=== PATIENT | female | born 1985 | race American Indian/Alaskan Native ===

== ENCOUNTER 2016-10-07 21:59 | Outpatient (CLI) | payer BC ==
[2016-10-07 22:29] VITALS: BP 108/58
[2016-10-07] MEDS ORDERED: LACTATED RINGERS 500 ML IV ONE (23:08)
== END 2016-10-07 23:10 | disposition home or self-care (01) ==
LOC: TRG 21:59 → LD 22:20 → TRG 23:10
PROVIDERS: ATTEND Obstetrics & Gynecology
DX: O47.03 False labor before 37 completed weeks of gestation, third trimester (principal); Z3A.36 36 weeks gestation of pregnancy
CPT/HCPCS: 59025

== ENCOUNTER 2016-10-23 15:23 | Outpatient (CLI) | payer BC ==
[2016-10-23 17:05] VITALS: BP 103/62
--- NOTE | 2016-10-24 07:39 | Ultrasound Report ---
ULTRASOUND BIOPHYSICAL PROFILE: History: Nonreactive stress test, well being Technique: Transabdominal ultrasound with Doppler interrogation. 2 - breathing movements 2 - movements 2 - posture and tone 2 - Qualitative amniotic fluid volume 8 - TOTAL SCORE OF POSSIBLE 8 Heart Rate (bpm) 157
== END 2016-10-23 18:05 | disposition home or self-care (01) ==
LOC: TRG 15:23
PROVIDERS: ATTEND Obstetrics & Gynecology
DX: O47.1 False labor at or after 37 completed weeks of gestation (principal); Z3A.38 38 weeks gestation of pregnancy
CPT/HCPCS: 59025; 76819

== ENCOUNTER 2016-11-06 04:21 | Inpatient (IN) | payer BC ==
[2016-11-06] MEDS ORDERED: SUBLIMAZE IV PRN (06:52)
[2016-11-06] MEDS ORDERED: STADOL IV PRN (06:52)
[2016-11-06] MEDS ORDERED: XYLOCAINE 2% INFILTRATI ONE (06:52)
[2016-11-06] MEDS ORDERED: MINERAL OIL PO PRN (06:52)
[2016-11-06] MEDS ORDERED: BRETHINE IVP PRN (06:52)
[2016-11-06] MEDS ORDERED: ZOFRAN IV PRN ×2 (06:52→09:00)
[2016-11-06] MEDS ORDERED: PHENERGAN PO PRN ×2 (06:52→09:00)
[2016-11-06] MEDS ORDERED: BRETHINE SUB-Q PRN (06:52)
[2016-11-06] MEDS ORDERED: ePHEDrine SULFATE IV PRN (06:52)
[2016-11-06] MEDS ORDERED: POLYCILLIN/NS 2 GM/100 ML 2 GM/100 ML BAG IV ONE ×2 (06:52→06:54)
[2016-11-06] MEDS ORDERED: PITOCin/NS 30 UNIT/500ML 30 UNITS/500 ML BAG IV SCH ×2 (07:00)
[2016-11-06] MEDS ORDERED: PITOCin/NS 20 UNIT/1000ML DRIP 20 UNITS/1,000 ML BAG IV SCH ×2 (07:00→09:00)
[2016-11-06] MEDS ORDERED: LACTATED RINGERS 1,000 ML IV SCH (07:00)
[2016-11-06 07:28] LABS: Hematocrit 24.1 % (30.3-42.9); Hemoglobin 7.2 gm/dl (10.1-14.3); Mean Corpuscular HGB Conc 30 % (30-34); Platelet Count 353 K/mm3 (140-440); Red Blood Count 3.62 M/mm3 (3.65-5.03)
[2016-11-06 07:34] LABS: Mean Corpuscular Volume 67 fl (79-97)
[2016-11-06 07:35] LABS: Mean Corpuscular Hemoglobin 20 pg (28-32); Red Cell Distribution Width 23.8 % (13.2-15.2)
--- NOTE | 2016-11-06 07:47 | History and Physical Report ---
History of Present Illness Date of examination: 11/06/16 Date of admission: 11/06/16 06:54 Chief complaint: Labor History of present illness: Pt is a 31yo BF EDC 11/04/16; EGA 40 2/7 weeks presents to L&D complaining of RUC's q 2-3 mins. She received care at [facility] since 14 weeks and course is significant for a previous c section followed by x 3. Pt desires a TOLAC. records are available and GBS is Positive. Past History Past Medical History: no pertinent history, heart disease (cardiac murmur) Past Surgical History: section Social history: no significant social history, single - Obstetrical History Expected Date of Delivery: 11/04/16 Actual Gestation: 40 Week(s) 2 Day(s) : 5 Medications and Allergies Allergies Allergy/AdvReac Type Severity Reaction Status Date / Time No Known Allergies Allergy Verified 10/07/16 23:11 Active Meds: Active Medications Butorphanol Tartrate (Stadol) 2 mg IV Q2H PRN PRN Reason: Pain , Severe (7-10) Fentanyl (Sublimaze) 100 mcg IV Q2H PRN PRN Reason: Labor Pain Last Admin: 11/06/16 07:00 Dose: 100 mcg Ampicillin Sodium (Polycillin/Ns 1 Gm/50 Ml) 1 gm in 50 mls @ 100 mls/hr IV Q4H JAYDON PRN Reason: Protocol Ampicillin Sodium (Polycillin/Ns 2 Gm/100 Ml) 2 gm in 100 mls @ 100 mls/hr IV ONCE ONE PRN Reason: Protocol Stop: 11/06/16 07:51 Lactated Ringer's (Lactated Ringers) 1,000 mls @ 125 mls/hr IV DIRECT JAYDON Last Admin: 11/06/16 07:14 Dose: 125 mls/hr Oxytocin/Sodium Chloride (Pitocin/Ns 20 Unit/1000ml Drip) 20 units in 1,000 mls @ 125 mls/hr IV DIRECT JAYDON Oxytocin/Sodium Chloride (Pitocin/Ns 30 Unit/500ml) 30 units in 500 mls @ 1 mls /hr IV TITR JAYDON; 1 MILLIUNITS/MIN PRN Reason: Protocol Oxytocin/Sodium Chloride (Pitocin/Ns 30 Unit/500ml) 30 units in 500 mls @ 4 mls /hr IV TITR JAYDON PRN Reason: Protocol Mineral Oil (Mineral Oil) 30 ml PO QHS PRN PRN Reason: Constipation Ondansetron HCl (Zofran) 4 mg IV Q8H PRN PRN Reason: Nausea And Vomiting Promethazine HCl (Phenergan) 25 mg PO Q6H PRN PRN Reason: Nausea And Vomiting Review of Systems All systems: negative - Vital Signs Vital signs: Vital Signs Pulse BP Pulse Ox 79 113/64 99 11/06/16 04:29 11/06/16 04:29 11/06/16 04:29 Temp Pulse Resp BP Pulse Ox 85 20 115/69 99 11/06/16 07:35 11/06/16 07:00 11/06/16 07:35 11/06/16 05:23 - Physical Exam Breasts: Positive: deferred Cardiovascular: Regular rate Lungs: Positive: Clear to auscultation Abdomen: Positive: normal appearance Genitourinary (Female): Positive: normal external genitalia Vagina: Positive: normal moisture Uterus: Positive: enlarged Extremities: Positive: normal - Obstetrical FHR: category 1 Uterine Contraction Monitor Mode: External Cervical Dilatation: 5.5 Cervical Effacement Percentage: 70 station: -2 Uterine Contraction Pattern: Regular Uterine Tone Measurement Phase: Contraction Uterine Contraction Intensity: Moderate Results Result Diagrams: 11/06/16 07:00 Abnormal lab results 11/06/16 Range/Units 07:00 WBC 21.0 H (4.5-11.0) K/mm3 RBC 3.62 L (3.65-5.03) M/mm3 Hgb 7.2 L (10.1-14.3) gm/dl Hct 24.1 L (30.3-42.9) % MCV 67 L (79-97) fl MCH 20 L (28-32) pg RDW 23.8 H (13.2-15.2) % All other labs normal. Assessment and Plan - Patient Problems (1) 40 weeks gestation of Onset Date: 11/06/16 Current Visit: Yes Status: Acute Plan to address problem: A: IUP @ 40 2/7 weeks in labor Previous c section with x3 GBS Positive Anemia P: Admit to L&D for expectant vaginal delivery IV Ampicillin (2) Previous delivery affecting Onset Date: 11/06/16 Current Visit: Yes Status: Acute (3) Anemia affecting fifth Onset Date: 11/06/16 Current Visit: Yes Status: Acute
--- NOTE | 2016-11-06 08:12 | Procedure Note ---
OB Delivery Note - Delivery Date of Delivery: 11/06/16 Surgeon: DEMETRIS SAMS Estimated blood loss: 200cc - Vaginal Delivery presentation: vertex Delivery position: OA Intrapartum events: meconium, precipitous labor- <3hr Delivery induction: none Delivery augmentation: rupture of membranes Delivery monitor: external FHT, external uterine Route of delivery: Delivery placenta: spontaneous Delivery cord: 3 umbilical vessels Episiotomy: none Delivery laceration: none Anesthesia: intravenous Delivery comments: Infant delivered OA over intact perineum, and bulb suctioned for 2+ meconium with RT in attendance. - A at 1 minute: 8 at 5 minutes: 9 Gender: Female (2831gms)
[2016-11-06] MEDS ORDERED: TUCKS PAD TP PRN (09:00)
[2016-11-06] MEDS ORDERED: DERMOPLAST TP PRN (09:00)
[2016-11-06] MEDS ORDERED: PHENERGAN PR PRN (09:00)
[2016-11-06] MEDS ORDERED: SODIUM CHLORIDE FLUSH SYRINGE 10 ML IV PRN (09:00)
[2016-11-06] MEDS ORDERED: NORCO 5/325 PO PRN (09:00)
[2016-11-06] MEDS ORDERED: PERCOCET 5/325 PO PRN (09:00)
[2016-11-06] MEDS ORDERED: BENADRYL PO PRN (09:00)
[2016-11-06] MEDS ORDERED: LANSINOH TP PRN (09:00)
[2016-11-06] MEDS ORDERED: TYLENOL PO PRN (09:00)
[2016-11-06] MEDS: MOTRIN PO SCH ×3 (09:25→22:00)
[2016-11-06] MEDS ORDERED: DULCOLAX PR PRN (10:00)
[2016-11-06] MEDS ORDERED: POLYCILLIN/NS 1 GM/50 ML 1 GM/50 ML BAG IV SCH (11:00)
[2016-11-06] MEDS: PRENATAL VITAMIN PO SCH (11:02)
[2016-11-06] MEDS: COLACE PO SCH ×2 (11:02→22:00)
[2016-11-06] MEDS: FEOSOL PO SCH ×2 (11:03→22:00)
[2016-11-06] MEDS: SENOKOT S PO SCH (20:48)
[2016-11-06 21:22] LABS: Hematocrit 22.4 % (30.3-42.9); Hemoglobin 6.9 gm/dl (10.1-14.3)
[2016-11-06] MEDS ORDERED: MILK OF MAGNESIA PO PRN (22:00)
[2016-11-07] MEDS: MOTRIN PO SCH ×2 (04:00→23:58)
[2016-11-07] MEDS ORDERED: BOOSTRIX IM ONE (06:00)
--- NOTE | 2016-11-07 10:18 | Progress Note ---
Assessment and Plan A: PP Day #1 Asymptomatic Anemia P: Follow Routine Orders Infed 100mg IM X 1 dose Continue PO FESO4 D/C home today per patient request RTO in 6 Weeks Subjective - Subjective Date of service: 11/07/16 Patient reports: appetite normal, voiding normally, pain well controlled, flatus , ambulating normally : doing well Objective - Vital Signs Latest vital signs: Vital Signs Temp Pulse Resp BP 11/07/16 04:00 98.6 F 76 16 122/68 11/07/16 00:00 98.6 F 64 16 101/59 11/06/16 21:00 98.6 F 71 16 100/69 11/06/16 17:38 98.4 F 66 18 100/58 Intake and Output 11/06/16 11/07/16 11/07/16 22:59 06:59 14:59 Intake Total 780 800 Balance 780 800 Intake: Oral 480 300 Intake, Free Water 300 500 Other: Total, Intake Amount 480 300 - Exam Breasts: Present: normal Cardiovascular: Present: Regular rate Lungs: Present: Clear to auscultation, Normal air movement Abdomen: Present: normal appearance, soft, normal bowel sounds Uterus: Present: normal, firm, fundal height below umbilicus Extremities: Present: normal - Labs Labs: Abnormal lab results 11/06/16 Range/Units 21:00 Hgb 6.9 L (10.1-14.3) gm/dl Hct 22.4 L (30.3-42.9) %
--- NOTE | 2016-11-07 10:19 | Discharge Summary ---
Providers - Providers Date of Admission: 11/06/16 06:54 Date of discharge: 11/07/16 Attending physician: DEMETRIS ZAVALETA MD Primary care physician: DEMETRIS ZAVALETA MD Hospitalization Reason for admission: active labor Delivery: Episiotomy: none Laceration: none Other procedures: none complications: none Discharge diagnosis: IUP at term delivered [place] baby: female Condition at discharge: Good Disposition: DC-01 TO HOME OR SELFCARE Plan - Provider Discharge Summary Activity: routine, no sex for 6 weeks, no heavy lifting 4 weeks, no strenuous exercise Diet: routine Instructions: routine Additional instructions: [] Smoking cessation referral if applicable(refer to patient education folder for contact #) [] Refer to [employer] Booklet Call your doctor immediately for: * Fever > 100.5 * Heavy vaginal bleeding ( >1 pad per hour) * Severe persistent headache * Shortness of breath * Reddened, hot, painful area to leg or breast * Drainage or odor from incision. * Keep incision clean and dry at all times and follow doctor's instructions regarding bathing/showering - Follow up plan Follow up: LEE LOZADA CNM [Advanced Practice Nurse] - 7 Days
[2016-11-07] MEDS ORDERED: INFED IM NR (11:00)
[2016-11-07] MEDS ORDERED: M-M-R II VACCINE SUB-Q ONE (11:00)
[2016-11-07] MEDS: PRENATAL VITAMIN PO SCH (13:14)
[2016-11-07] MEDS ORDERED: PITOCin/NS 30 UNIT/500ML 30 UNITS/500 ML BAG IV SCH (18:00)
[2016-11-07] MEDS: SENOKOT S PO SCH ×2 (23:57→23:59)
[2016-11-07] MEDS: FEOSOL PO SCH (23:58)
[2016-11-07] MEDS: COLACE PO SCH (23:58)
[2016-11-08] MEDS: MOTRIN PO SCH ×2 (06:10→10:00)
[2016-11-08] MEDS: FEOSOL PO SCH (10:00)
[2016-11-08] MEDS: COLACE PO SCH (10:00)
[2016-11-08] MEDS: PRENATAL VITAMIN PO SCH (10:00)
[2016-11-08 14:27] VITALS: BP 111/51
== END 2016-11-08 13:55 | disposition home or self-care (01) | DRG 775 ==
LOC: TRG 04:21 → LD 06:54 → OB 10:28
PROVIDERS: ADMIT Obstetrics & Gynecology; ATTEND Obstetrics & Gynecology
PROC: 10E0XZZ Delivery of Products of Conception, External Approach (ICD-10-PCS; principal; 2016-11-06)
DX: O34.211 Maternal care for low transverse scar from previous cesarean delivery (principal); Z37.0 Single live birth; O99.824 Streptococcus B carrier state complicating childbirth; O99.02 Anemia complicating childbirth; D64.9 Anemia, unspecified; O77.0 Labor and delivery complicated by meconium in amniotic fluid; O62.3 Precipitate labor; Z3A.40 40 weeks gestation of pregnancy
CPT/HCPCS: 36415; 85014; 85018; 85027; 86850; 86900; 86901; 99211; G0463; J0290; J1750; J2590; J3010; J7120